=== PATIENT | male | born 1980 | race Caucasian/White ===

== ENCOUNTER 2016-12-06 03:30 | Emergency (ER) | payer OTHER | END 2016-12-06 04:30 | disposition home or self-care (01) | LOC: D.ER 03:30 | DX: J02.9 Acute pharyngitis, unspecified (principal) ==

== ENCOUNTER 2017-05-12 10:07 | Emergency (ER) | payer OTHER | END 2017-05-12 11:20 | disposition home or self-care (01) | LOC: D.ER 10:07 | DX: S05.01XA Injury of conjunctiva and corneal abrasion without foreign body, right eye, initial encounter (principal); W20.8XXA Other cause of strike by thrown, projected or falling object, initial encounter; Y93.89 Activity, other specified; Y92.89 Other specified places as the place of occurrence of the external cause ==